=== PATIENT | male | born 1955 | race Two or more races ===

== ENCOUNTER 2022-12-01 06:28 | Inpatient (IN) | payer MEDICARE, OTHER ==
[~2022-12-01] VITALS: Ht 172.7 cm; Wt 88.0 kg
[~2022-12-01 06:28] MED LIST: AMLO10TA4 PO; LISI40TA13 PO
--- NOTE | 2022-12-01 10:10 | NUR ---
SIGNALING DESIGN ENGINEERCONSTRUCTION ASSISTANT NOTES RECEIVED PATIENT DIRECT ADMIT FROM COLEMAN VIA mSpoke[facility]PSON. PATIENT IS AWAKE AND A/O X4, BENGALI SPEAKING. ON O2 AT 2LPM VIA NASAL CANNULA TOLERATING WELL. NO SOB NOTED. NOT IN DISTRESS. WITH IV ACCESS AT THE RIGHT AC G22 SALINE LOCKED, PATENT AND INTACT. WITH LEFT FOREARM HD FISTULA. ON TELE MONITOR READING SINUS RHYTHM AT 64BPM. REPORTED TO HAVE GENERALIZED WEAKNESS. SKIN IS INTACT. SAFETY MEASURES IN PLACED. CALL LIGHT WITHIN REACH. BED ON LOWEST LOCKED POSITION, SIDE RAILS UP X2. WILL CONTINUE TO MONITOR.
[2022-12-01] MEDS ORDERED: METO25TA20 PO (10:23)
[2022-12-01] MEDS ORDERED: AMIO200T5 PO (10:23)
[2022-12-01] MEDS ORDERED: ATOR10TA PO (10:23)
[2022-12-01] MEDS ORDERED: HYDR100T27 PO (10:23)
[2022-12-01] MEDS ORDERED: LEVE500T20 PO (10:23)
[2022-12-01] MEDS ORDERED: ZOLP5TAB8 PO (10:23)
[2022-12-01] MEDS ORDERED: SEVE800T8 PO (10:23)
[2022-12-01] MEDS ORDERED: GABA-532 PO (10:23)
[2022-12-01 12:00] VITALS: BP 149/82
[2022-12-01 12:47] VITALS: BP 149/82
[2022-12-01] MEDS ORDERED: ONDANSETRON HCL/PF 4 MG/2 ML VIAL IVP PRN (15:30)
[2022-12-01] MEDS ORDERED: ZOLPIDEM TARTRATE 5 MG TABLET PO PRN ×2 (15:30→17:00)
[2022-12-01] MEDS ORDERED: Z GUARD REMEDY 4 OZ OINT TP PRN (15:30)
[2022-12-01] MEDS ORDERED: MAG HYDROX/AL HYDROX/SIMETH 30 ML UDC PO PRN (15:30)
[2022-12-01] MEDS ORDERED: ACETAMINOPHEN 325 MG TABLET PO PRN (15:30)
[2022-12-01] MEDS ORDERED: MAGNESIUM HYDROXIDE 30 ML UDC PO PRN (15:30)
[2022-12-01 15:52] LABS: BASOPHILS # (AUTO) 0.1 K/uL (0.0-0.2); BASOPHILS % (AUTO) 0.8 % (0.0-2.0); EOSINOPHILS % (AUTO) 2.5 % (0.0-6.0); HEMATOCRIT 38 % (39-51); HEMOGLOBIN 12.2 g/dL (13.5-17.5); LYMPHOCYTES # (AUTO) 0.8 K/uL (0.8-4.8); LYMPHOCYTES % (AUTO) 11.8 % (20.0-44.0); MEAN CORPUSCULAR HGB CONC 32 g/dl (31.0-36.0); MEAN CORPUSCULAR VOLUME 105 fL (80-96); MONOCYTES # (AUTO) 0.7 K/uL (0.1-1.30); MONOCYTES % (AUTO) 10.4 % (2.0-12.0); NEUTROPHILS # (AUTO) 4.9 K/uL (1.8-8.9); NEUTROPHILS % (AUTO) 74.5 % (43.0-81.0); PLATELET COUNT (AUTO) 213 K/uL (150-450); RED BLOOD CELL COUNT(AUTO) 3.59 MIL/uL (4.5-6.0); WHITE BLOOD COUNT (AUTO) 6.6 K/uL (4.3-11.0)
[2022-12-01 16:00] VITALS: BP 145/91
[2022-12-01 16:14] LABS: ALBUMIN 3.6 g/dL (3.4-5.0); BILIRUBIN,TOTAL 0.5 mg/dL (0.2-1.0); CALCIUM, SERUM 8.6 mg/dL (8.5-10.1); POTASSIUM 5.6 mmol/L (3.5-5.1); TOTAL PROTEIN, SERUM 7.3 g/dL (6.4-8.2)
[2022-12-01] MEDS: hydrALAZINE HCL 50 MG TABLET PO SCH (16:45)
[2022-12-01] MEDS: ASPIRIN 81 MG TAB.CHEW PO SCH (16:45)
[2022-12-01] MEDS: LEVETIRACETAM (250 MG) 250 MG TABLET PO SCH (16:45)
--- NOTE | 2022-12-01 16:45 | NUR ---
RN NOTES REPORTED TO DR. RON THAT PT'S TROPONIN IS 458 AND ORDERED TO START HEPARIN DRIP ACS.
[2022-12-01] MEDS: METOPROLOL TARTRATE 25 MG TABLET PO SCH (16:46)
[2022-12-01] MEDS: AMIODARONE HCL 200 MG TABLET PO SCH (16:48)
[2022-12-01] MEDS ORDERED: GABAPENTIN 100 MG CAPSULE PO PRN (17:00)
[2022-12-01] MEDS: SEVELAMER CARBONATE 800 MG POWD.PACK PO SCH (17:37)
[2022-12-01 17:59] LABS: EOSINOPHILS % (MANUAL) 2 % (0-4); LYMPHOCYTES % (MANUAL) 10 % (16-48); MONOCYTES % (MANUAL) 13 % (0-11.0); NEUTROPHILS % (MANUAL) 75 (42-76)
[2022-12-01] MEDS: HEPARIN INFUSION/D5W 500 ML IV PRN (18:46)
[2022-12-01] MEDS ORDERED: HEPARIN SODIUM, PORCINE 1000 UNIT/1 ML VIAL IV ONE (19:00)
--- NOTE | 2022-12-01 19:30 | NUR ---
FRATERNITY HOUSE COOK CLOSING NOTES PATIENT ON BED RESTING AND A/O X4, DIVEHI SPEAKING. ON O2 AT 2LPM VIA NASAL CANNULA TOLERATING WELL. NO SOB NOTED. NOT IN DISTRESS. WITH IV ACCESS AT THE RIGHT AC G22, ON HEPARIN DRIP AT 1200U/HR (24ML/HR) INFUSING WELL. FOR APTT CHECK AT 0246. WITH LEFT FOREARM HD FISTULA. ON TELE MONITOR READING SINUS RHYTHM AT 68BPM. DUE MEDS GIVEN. SAFETY MEASURES IN PLACED. CALL LIGHT WITHIN REACH. BED ON LOWEST LOCKED POSITION, SIDE RAILS UP X2. WILL ENDORSE TO NEXT SHIFT FOR JACLYN.
[2022-12-01 20:00] VITALS: BP 154/91
--- NOTE | 2022-12-01 20:32 | NUR ---
MS/TELE/RN PATIENT APPEARS SLEEPING AT THIS TIME, APPEARS COMFORTABLE, NO SIGNS OF DISTRESS NOTED, HEPARIN DRIP INFUSING, CALL LIGHT IN REACH, WILL MONITOR.
--- NOTE | 2022-12-02 04:12 | NUR ---
MS/TELE/RN PTT=92.8, PER HEPARIN PROTOCOL, HOLD HEPARIN INFUSION FOR 60 MINUTES, THEN DECREASE RATE BY 250 UNITS/HR, THEN PTT SIX HOURS AFTER THE HEPARIN INFUSION WAS RE STARTED.
--- NOTE | 2022-12-02 05:59 | NUR ---
MS/TELE/RN PATIENT IS STILL SLEEPING, NO SIGNS OF DISTRESS NOTED, HEPARIN INFUSION WAS RESTARTED AT 0500H PER PROTOCOL, ALL NEEDS ATTENDED AT THIS TIME, WILL CONTINUE TO MONITOR.
[2022-12-02 06:42] LABS: BASOPHILS # (AUTO) 0.1 K/uL (0.0-0.2); BASOPHILS % (AUTO) 0.8 % (0.0-2.0); HEMATOCRIT 34 % (39-51); HEMOGLOBIN 11.2 g/dL (13.5-17.5); LYMPHOCYTES % (AUTO) 16.6 % (20.0-44.0); MEAN CORPUSCULAR HGB CONC 33 g/dl (31.0-36.0); MEAN CORPUSCULAR VOLUME 105 fL (80-96); MONOCYTES # (AUTO) 0.7 K/uL (0.1-1.30); MONOCYTES % (AUTO) 12.1 % (2.0-12.0); NEUTROPHILS # (AUTO) 4.1 K/uL (1.8-8.9); NEUTROPHILS % (AUTO) 66.5 % (43.0-81.0); PLATELET COUNT (AUTO) 206 K/uL (150-450); RED BLOOD CELL COUNT(AUTO) 3.29 MIL/uL (4.5-6.0); WHITE BLOOD COUNT (AUTO) 6.1 K/uL (4.3-11.0)
[2022-12-02 07:19] LABS: CALCIUM, SERUM 8.4 mg/dL (8.5-10.1); MAGNESIUM 3.1 mg/dL (1.8-2.4); PHOSPHORUS 7.9 mg/dL (2.5-4.9)
--- NOTE | 2022-12-02 07:25 | NUR ---
TREKKING GUIDE OPENING NOTES RECEIVED PATIENT AWAKE IN BED WITH NO ACUTE SIGNS OF DISTRESS. A/O X4. KINYARWANDA SPEAKING, DENIES PAIN OR ANY DISCOMFORTS AT THIS TIME. ON O2 AT 2LPM VIA NASAL CANNULA TOLERATING WELL, BREATHING EVEN AND UNLABORED. IV ACCESS ON RAC G#22, HEPARIN DRIP AT 950 U/H ( 19ML/HR) INFUSING WELL, NO S/S OF INFILTRATION AT SITE NOTED. ON TELE MONITOR CURRENTLY READING SB, HR 54 BPM, NO C/O CARDIAC DISTRESS VOICED AT THIS TIME. SAFETY MEASURES IN PLACED: CALL LIGHT WITHIN REACH, BED ON LOWEST LOCKED POSITION, BED ALARM ON, SIDE RAILS UP X2. WILL CONTINUE TO MONITOR PT ACCORDINGLY. Addendum: 12/02/22 at 0823 by NATALEE VERGARA RN ADDENDUM PATIENT WITH AV FISTULA IN PLACE WITH POSITIVE BRUIT AND SHRILL NOTED.
[2022-12-02 08:01] LABS: POTASSIUM 6.7 mmol/L (3.5-5.1)
[2022-12-02 08:02] LABS: CREATININE 11.9 mg/dL (0.6-1.3)
[2022-12-02] MEDS: SEVELAMER CARBONATE 800 MG POWD.PACK PO SCH (08:36)
[2022-12-02] MEDS: LEVETIRACETAM (250 MG) 250 MG TABLET PO SCH ×2 (08:36→18:14)
[2022-12-02] MEDS: ASPIRIN 81 MG TAB.CHEW PO SCH (08:36)
[2022-12-02] MEDS: AMIODARONE HCL 200 MG TABLET PO SCH ×2 (08:37→18:15)
[2022-12-02] MEDS: hydrALAZINE HCL 50 MG TABLET PO SCH ×3 (08:37→18:14)
[2022-12-02 08:38] LABS: THYROID STIMULATING HORMONE 1.837 uIU/mL (0.358-3.74)
[2022-12-02] MEDS: METOPROLOL TARTRATE 25 MG TABLET PO SCH ×2 (08:43→18:15)
[2022-12-02] MEDS ORDERED: ATORVASTATIN 10 MG TABLET PO SCH ×2 (09:00→10:00)
[2022-12-02] MEDS: HEPARIN INFUSION/D5W 500 ML IV PRN (12:35)
--- NOTE | 2022-12-02 12:43 | NUR ---
RN NOTES LATEST PTT WAS 51.9 AT 1235, NO CHANGE IN HEPARIN DRIP DOSAGE PER PROTOCOL, STILL 950 U/H ( (19ML/HR). NEXT PTT DRAW WILL BE TOMORROW MORNING.
[2022-12-02] MEDS: SEVELAMER CARBONATE 800 MG TABLET PO SCH ×2 (13:45→18:15)
[2022-12-02 13:52] VITALS: BP 132/79
--- NOTE | 2022-12-02 13:52 | NUR ---
RN NOTES RECEIVED CALL FROM RADIOLOGIST LUKAS IF ITS OK TO PROCEED WITH CTCA EVEN IF PT HAS LOW GFR 4. DR COCHRAN MADE AWARE AND STATED "OK, NO PROBLEM"
[2022-12-02] MEDS ORDERED: METOPROLOL TARTRATE INJ 5 MG/5 ML AMPUL ONE (14:11)
[2022-12-02] MEDS ORDERED: NITROGLYCERIN 0.4 MG/TAB BOTTLE ONE (14:12)
[2022-12-02] MEDS ORDERED: METOPROLOL TARTRATE INJ 5 MG/5 ML AMPUL IVP PRN (14:30)
[2022-12-02] MEDS ORDERED: NITROGLYCERIN 0.4 MG/TAB BOTTLE SL ONE (14:30)
--- NOTE | 2022-12-02 15:45 | NUR ---
RN NOTES CTCA DONE TODAY, RESULT STILL PENDING.+
--- NOTE | 2022-12-02 16:30 | NUR ---
RN NOTES INFORMED DR ONEILL OF THE LATEST TROPONIN I HIGH SENS [address] DR ONEILL ACKNOWLEDGES AND NO NEW ORDERS MADE AT THIS TIME.
[2022-12-02 16:36] VITALS: BP 123/73
--- NOTE | 2022-12-02 18:25 | NUR ---
RN NOTES PATIENT COMPLETED AND TOLERATED HEMODIALYSIS VIA LEFT LOWER ARM AV FISTULA. WITH 2000ML FLUIDS REMOVED. NO ACTIVE BLEEDING NOTED AT THE SITE.
--- NOTE | 2022-12-02 18:48 | NUR ---
WHITESMITH CLOSING NOTE PATIENT AWAKE IN BED WITH NO ACUTE SIGNS OF DISTRESS. A/O X4. KYRGYZ SPEAKING, DENIES PAIN OR ANY DISCOMFORTS AT THIS TIME. ON O2 AT 2LPM VIA NASAL CANNULA TOLERATING WELL, BREATHING EVEN AND UNLABORED. WITH AV FISTULA IN PLACE ON LEFT FOREARM WITH POSITIVE BRUIT AND SHRILL NOTED. IV ACCESS ON RAC G#22 PATENT AND INTACT, HEPARIN DRIP AT 950 U/H (19ML/HR) INFUSING WELL, NO S/S OF INFILTRATION AT SITE NOTED. ADMINISTERED MEDICATIONS PRESCRIBED. ON TELE MONITOR CURRENTLY READING SINUS RHYTHM, HR 60 BPM, NO COMPLAINTS OF CARDIAC DISTRESS VOICED AT THIS TIME. SAFETY MEASURES IN PLACED: CALL LIGHT WITHIN REACH, BED ON LOWEST LOCKED POSITION, BED ALARM ON, SIDE RAILS UP X2. WILL ENDORSE TO TILE LAYER NURSE FOR CONTINUITY OF CARE
--- NOTE | 2022-12-02 19:57 | NUR ---
RN OPENING NOTE PATIENT AWAKE IN BED. A/OX4. NO S/S OF DISTRESS, BREATHING WITHOUT DIFFICULTY ON 2L NC. RAC #22 INTACT AND PATENT W/ HEPARIN GTT 950U (19ML)/HR. TELE READS SB 59. NO PAIN NOTED, PATIENT NOT DIAPHORETIC. SAFETY MEASURES IN PLACE: BED LOCKED AND AT LOWEST POSITION, RAILS UP X2, CALL PA WITHIN REACH. WILL CONTINUE TO MONITOR PATIENT.
[2022-12-02 20:00] VITALS: BP 150/83
[2022-12-03] VITALS: BP 129/75
[2022-12-03 04:00] VITALS: BP 149/95
--- NOTE | 2022-12-03 06:27 | NUR ---
RN CLOSING NOTE PATIENT AWAKE IN BED. A/OX2 (NAME, PLACE). NO S/S OF DISTRESS, BREATHING WITHOUT DIFFICULTY ON ROOM AIR. LAV SHUNT; RAC #22 INTACT AND PATENT W/ HEPARIN GTT 950 UNITS (19ML)/HR. TELE READS SB 57. SAFETY MEASURES IN PLACE: BED LOCKED AND AT LOWEST POSITION, RAILS UP X2, CALL PA WITHIN REACH. WILL ENDORSE TO DAY SHIFT FOR JACLYN.
[2022-12-03 07:14] LABS: BASOPHILS % (AUTO) 0.6 % (0.0-2.0); EOSINOPHILS % (AUTO) 3.5 % (0.0-6.0); HEMATOCRIT 34 % (39-51); HEMOGLOBIN 11.2 g/dL (13.5-17.5); LYMPHOCYTES # (AUTO) 0.7 K/uL (0.8-4.8); LYMPHOCYTES % (AUTO) 13.8 % (20.0-44.0); MEAN CORPUSCULAR HGB CONC 33 g/dl (31.0-36.0); MEAN CORPUSCULAR VOLUME 104 fL (80-96); MONOCYTES # (AUTO) 0.7 K/uL (0.1-1.30); MONOCYTES % (AUTO) 12.7 % (2.0-12.0); NEUTROPHILS # (AUTO) 3.7 K/uL (1.8-8.9); NEUTROPHILS % (AUTO) 69.4 % (43.0-81.0); PLATELET COUNT (AUTO) 205 K/uL (150-450); RED BLOOD CELL COUNT(AUTO) 3.23 MIL/uL (4.5-6.0); WHITE BLOOD COUNT (AUTO) 5.3 K/uL (4.3-11.0)
--- NOTE | 2022-12-03 07:30 | NUR ---
ESCALATOR MECHANIC NOTES PT IN BED, ASLEEP, EASY TO AROUSE, ON HEPARIN DRIP, NO S/S OF BLEEDING, ALERT AND ORIENTED, NO COMPLAINT OF PAIN OR ANY DISCOMFORT, RESPIRATIONS NORMAL, CALL LIGHT WITHIN REACH, ASSISTED WITH URINAL USE, PLAN OF CARE DISCUSSED WITH PT, VERBALIZED UNDERSTANDING.
[2022-12-03 08:00] VITALS: BP 131/77
[2022-12-03 08:31] LABS: ALBUMIN 3.4 g/dL (3.4-5.0); BILIRUBIN,TOTAL 0.4 mg/dL (0.2-1.0); CALCIUM, SERUM 8.8 mg/dL (8.5-10.1); MAGNESIUM 2.8 mg/dL (1.8-2.4); PHOSPHORUS 7.5 mg/dL (2.5-4.9); POTASSIUM 5.6 mmol/L (3.5-5.1); TOTAL PROTEIN, SERUM 6.9 g/dL (6.4-8.2)
[2022-12-03 08:40] LABS: CREATININE 11.4 mg/dL (0.6-1.3)
[2022-12-03] MEDS: AMIODARONE HCL 200 MG TABLET PO SCH (09:00)
[2022-12-03] MEDS: SEVELAMER CARBONATE 800 MG TABLET PO SCH ×3 (10:35→17:26)
[2022-12-03] MEDS: LEVETIRACETAM (250 MG) 250 MG TABLET PO SCH ×2 (10:35→17:25)
[2022-12-03] MEDS: ASPIRIN 81 MG TAB.CHEW PO SCH (10:35)
[2022-12-03] MEDS: hydrALAZINE HCL 50 MG TABLET PO SCH ×3 (10:36→17:25)
[2022-12-03] MEDS: ATORVASTATIN 10 MG TABLET PO SCH (10:37)
[2022-12-03] MEDS: METOPROLOL TARTRATE 25 MG TABLET PO SCH ×2 (10:37→17:26)
[2022-12-03 12:00] VITALS: BP 158/84
--- NOTE | 2022-12-03 12:36 | NUR ---
BIOMETRICS ANALYST NOTES HYDRALAZINE NOT GIVEN, PT WILL HAVE DIALYSIS.
--- NOTE | 2022-12-03 12:56 | NUR ---
HORSE WRANGLER NOTES PT SEEN AND EXAMINED BY DR. HONEYCUTT, ORDERS GIVEN.
[2022-12-03 15:55] VITALS: BP 149/73
--- NOTE | 2022-12-03 18:32 | NUR ---
RN MS NOTES PT IN BED, ASLEEP, EASY TO AROUSE, ALERT AND ORIENTED, NO COMPLAINT OF PAIN, NOT IN DISTRESS, COMPLETED HEMODIALYSIS TODAY, TOLERATED WELL, S/P HEPARIN DRIP, NO S/S OF BLEEDING NOTED, PM MEDS GIVEN ORDERED, NEEDS ATTENDED.
--- NOTE | 2022-12-03 19:47 | NUR ---
RN OPENING NOTE PATIENT AWAKE IN BED. A/OX4. NO S/S OF DISTRESS, BREATHING WITHOUT DIFFICULTY ON ROOM AIR. LAV SHUNT; RAC #22 SL INTACT AND PATENT. SAFETY MEASURES IN PLACE: BED LOCKED AND AT LOWEST POSITION, RAILS UP X2, CALL PA WITHIN REACH. WILL CONTINUE TO MONITOR PATIENT.
[2022-12-03 20:11] VITALS: BP 136/78
[2022-12-04 06:34] LABS: BASOPHILS % (AUTO) 0.6 % (0.0-2.0); HEMATOCRIT 35 % (39-51); HEMOGLOBIN 11.4 g/dL (13.5-17.5); LYMPHOCYTES # (AUTO) 0.7 K/uL (0.8-4.8); MEAN CORPUSCULAR HGB CONC 33 g/dl (31.0-36.0); MEAN CORPUSCULAR VOLUME 106 fL (80-96); MONOCYTES # (AUTO) 0.9 K/uL (0.1-1.30); MONOCYTES % (AUTO) 15.9 % (2.0-12.0); NEUTROPHILS # (AUTO) 3.6 K/uL (1.8-8.9); NEUTROPHILS % (AUTO) 66.5 % (43.0-81.0); PLATELET COUNT (AUTO) 192 K/uL (150-450); RED BLOOD CELL COUNT(AUTO) 3.26 MIL/uL (4.5-6.0); WHITE BLOOD COUNT (AUTO) 5.4 K/uL (4.3-11.0)
--- NOTE | 2022-12-04 06:51 | NUR ---
RN CLOSING NOTE PATIENT ASLEEP IN BED. A/OX2 (PLACE, NAME). NO S/S OF DISTRESS, BREATHING WITHOUT DIFFICULTY ON ROOM AIR. LAV SHUNT INTACT; RAC #22 SL INTACT AND PATENT. SAFETY MEASURES IN PLACE: BED LOCKED AND AT LOWEST POSITION, RAILS UP X2, CALL PA WITHIN REACH. WILL ENDORSE TO NEXT SHIFT FOR JACLYN.
--- NOTE | 2022-12-04 07:15 | NUR ---
MS RN OPENING NOTES RECEIVED PATIENT ASLEEP IN BED, EASY TO WAKE UP BY CALLING NAME. A/O X 4. NO S/S OF RESPIRATORY DISTRESS, BREATHING WITHOUT DIFFICULTY ON ROOM AIR. LAV SHUNT INTACT; RAC #22 SL INTACT AND PATENT. SAFETY MEASURES MAINTAINED WITH BED ON LOW POSITION AND LOCKED. SIDE RAILS X2. CALL LIGHT WITHIN REACH. WILL CONTINUE WITH THE PLAN OF CARE.
[2022-12-04 07:43] LABS: CALCIUM, SERUM 9.3 mg/dL (8.5-10.1); MAGNESIUM 2.7 mg/dL (1.8-2.4); PHOSPHORUS 5.5 mg/dL (2.5-4.9); POTASSIUM 5.2 mmol/L (3.5-5.1)
[2022-12-04 08:00] VITALS: BP 159/64
[2022-12-04 08:11] LABS: CREATININE 9.6 mg/dL (0.6-1.3)
[2022-12-04] MEDS: SEVELAMER CARBONATE 800 MG TABLET PO SCH ×3 (08:36→17:12)
[2022-12-04] MEDS: ASPIRIN 81 MG TAB.CHEW PO SCH (09:24)
[2022-12-04] MEDS: METOPROLOL TARTRATE 25 MG TABLET PO SCH ×2 (09:25→17:13)
[2022-12-04] MEDS: hydrALAZINE HCL 50 MG TABLET PO SCH ×3 (09:26→17:13)
[2022-12-04] MEDS: ATORVASTATIN 10 MG TABLET PO SCH (09:26)
[2022-12-04] MEDS: LEVETIRACETAM (250 MG) 250 MG TABLET PO SCH ×2 (09:27→17:12)
[2022-12-04] MEDS: AMIODARONE HCL 200 MG TABLET PO SCH (09:27)
[2022-12-04 15:59] VITALS: BP 141/78
--- NOTE | 2022-12-04 16:37 | NUR ---
MS RN NOTES CALLED [facility] [place] [facility] AT [phone] AND LEFT A VOICEMAIL REQUESTING FOR THE PATIENT'S MEDICAL RECORDS DENISE
[2022-12-04] MEDS ORDERED: AMIO200T7 PO (17:06)
--- NOTE | 2022-12-04 17:37 | NUR ---
RN MS NOTES PT IS SCHEDULED FOR HD TOMORROW AND HIS DAVITA SCHEDULE IS MON-WED-FRI, PER DR. HONEYCUTT, PT MAY GO HOME TOMORROW AFTER DIALYSIS, PT INFORMED.
--- NOTE | 2022-12-04 18:55 | NUR ---
MS RN CLOSING NOTES PATIENT IN BED AWAKE, ALERT AND ORIENTED. A/O X 4. NO S/S OF RESPIRATORY DISTRESS, BREATHING WITHOUT DIFFICULTY ON ROOM AIR. LAV SHUNT INTACT; RAC #22 SL INTACT AND PATENT. SAFETY MEASURES MAINTAINED WITH BED ON LOW POSITION AND LOCKED. SIDE RAILS X2. CALL LIGHT WITHIN REACH. WILL ENDORSE TO THE NEXT SHIFT FOR THE CONTINUITY OF CARE.
--- NOTE | 2022-12-04 19:15 | NUR ---
MS RN OPENING NOTES RECIEVED PT IN BED AWAKE. A/O X 4. NO S/S OF RESPIRATORY DISTRESS, BREATHING WITHOUT DIFFICULTY ON ROOM AIR. LAV SHUNT INTACT; RAC #22 SL INTACT AND PATENT. SAFETY MEASURES IN PLACE: BED ON LOW POSITION AND LOCKED. SIDE RAILS X2. CALL LIGHT WITHIN REACH. WILL CONTINUE TO MONITOR AND ASSIST.
[2022-12-04 20:00] VITALS: BP 165/92
--- NOTE | 2022-12-05 06:29 | NUR ---
MS RN CLOSING NOTES PT IN BED AWAKE. A/O X 4. STABLE ON RA WITH NO S/S OF RESPIRATORY DISTRESS. LAV SHUNT INTACT; RAC #22 SL INTACT AND PATENT. ALL CARE PROVIDED TOLERATED WELL. SAFETY MEASURES MAINTAINED: BED ON LOW POSITION AND LOCKED. SIDE RAILS X2. CALL LIGHT WITHIN REACH. WILL ENDORSE JACLYN TO DAY SHIFT NURSE.
--- NOTE | 2022-12-05 07:30 | NUR ---
RN OPENING NOTE- PT IN BED AWAKE. A/O X 4. NO S/S OF RESPIRATORY DISTRESS, BREATHING WITHOUT DIFFICULTY ON ROOM AIR. O2 AT 2 LPM THOUGH PT SATS 95% ON RA. LAV SHUNT INTACT; RAC #22 SL INTACT AND PATENT. SAFETY MEASURES IN PLACE: BED ON LOW POSITION AND LOCKED. SIDE RAILS X2. CALL LIGHT WITHIN REACH. WILL CONTINUE TO MONITOR AND ASSIST.
[2022-12-05 08:00] VITALS: BP 149/90
[2022-12-05] MEDS: AMIODARONE HCL 200 MG TABLET PO SCH (08:09)
[2022-12-05] MEDS: LEVETIRACETAM (250 MG) 250 MG TABLET PO SCH (08:10)
[2022-12-05] MEDS: SEVELAMER CARBONATE 800 MG TABLET PO SCH ×2 (08:10→12:11)
[2022-12-05] MEDS: METOPROLOL TARTRATE 25 MG TABLET PO SCH (08:11)
[2022-12-05] MEDS: ASPIRIN 81 MG TAB.CHEW PO SCH (08:12)
[2022-12-05] MEDS: ATORVASTATIN 10 MG TABLET PO SCH (08:12)
[2022-12-05 08:13] VITALS: BP 149/90
[2022-12-05] MEDS: hydrALAZINE HCL 50 MG TABLET PO SCH ×2 (08:13→12:11)
--- NOTE | 2022-12-05 12:11 | NUR ---
RN NOTE- NO RX AT 1300. ON HEMODIALYSIS
--- NOTE | 2022-12-05 15:23 | NUR ---
RN NOTE- DISCHARGE - PT DC HOME INTO CARE OF FAMILY AT THIS TIME. SON AT BEDSIDE. HD COMPLETED W 2L REMOVED, VS STABLE, IV SITE REMOVED, ID WRISTBAND REMOVED. ORDERS REVIEWED AND UNDERSTOOD. ESCORTED OFF UNIT BY STAFF
== END 2022-12-05 15:10 | disposition home or self-care (01) | DRG 280 ==
LOC: TELE 09:50 → MED 12-03 12:41
PROVIDERS: ADMIT Student in an Organized Health Care Education/Training Program; ATTEND Nurse Practitioner Acute Care
PROC: 5A1D70Z Performance of Urinary Filtration, Intermittent, Less than 6 Hours Per Day (ICD-10-PCS; principal; 2022-12-02)
DX: I21.4 Non-ST elevation (NSTEMI) myocardial infarction (principal); N18.6 End stage renal disease; I12.0 Hypertensive chronic kidney disease with stage 5 chronic kidney disease or end stage renal disease; Q61.2 Polycystic kidney, adult type; E87.5 Hyperkalemia; D63.8 Anemia in other chronic diseases classified elsewhere; Z79.82 Long term (current) use of aspirin; Z99.2 Dependence on renal dialysis; R56.9 Unspecified convulsions; Z98.890 Other specified postprocedural states; R93.1 Abnormal findings on diagnostic imaging of heart and coronary circulation; E83.9 Disorder of mineral metabolism, unspecified; M89.9 Disorder of bone, unspecified
CPT/HCPCS: 36415; 71045-TC; 75574; 80048-TC; 80053-TC; 80061-TC; 83735-TC; 84100-TC; 84443-TC; 84484-TC; 85025-TC; 85730-TC; 86706; 87081-TC; 87340; 90935-TC; 93307-TC; 97112-TC; 97116-TC; 97530-TC; G0378; J1644; J3490; J7030